=== PATIENT | male | born 1950 | race Caucasian/White ===

== ENCOUNTER → 2016-10-30 10:28 | Outpatient (CLI) | payer MEDICARE, BC | END | disposition home or self-care (01) | LOC: D.RAD 10:28 | DX: R05 Cough (principal) ==

== ENCOUNTER 2017-10-07 06:02 | Emergency (ER) | payer MEDICARE, BC ==
[~2017-10-07] VITALS: Ht 182.9 cm; Wt 84.1 kg
[2017-10-07 06:15] VITALS: Ht 182.9 cm; Wt 84.1 kg
[2017-10-07] MEDS ORDERED: ZESTRIL20 MG PO (06:16)
[2017-10-07] MEDS ORDERED: HYDROCHLOROTH12.5 M1 PO (06:17)
[2017-10-07] MEDS ORDERED: CRESTOR10 MG PO (06:18)
[2017-10-07] MEDS ORDERED: BAYER CHEWABLE81 MG PO (06:18)
[2017-10-07] MEDS ORDERED: FISH OIL 1,2001 CAP PO (06:18)
[2017-10-07 06:47] LABS: BASOPHILS 0.1 % (0-2); HEMATOCRIT 48.2 % (42.0-54.0); HEMOGLOBIN 16.8 g/dL (13.5-17.5); IMMATURE GRANULOCYTES 0.2 % (0-5); LYMPHOCYTES 15.7 % (15-50); MCH 32.6 pg (26.0-34.0); MCHC 34.9 g/dL (31.0-37.0); MCV 93.4 fL (80.0-100.0); MEAN PLATELET VOLUME 10.3 fL (7.4-10.4); MONOCYTES 7.6 % (2-11); NEUTROPHILS 75.4 % (40-80); PLATELET COUNT 149 10x3/uL (130-400); RBC 5.16 10x6/uL (4.20-6.10); RDW 12.7 % (11.5-14.5); WBC 9.6 10x3/uL (4.8-10.8)
[2017-10-07 06:58] LABS: APTT 23.6 SECONDS (22.8-39.4); INR 0.91 (0.85-1.17); PROTIME 11.9 SECONDS (11.6-15.0)
[2017-10-07 07:05] LABS: ALBUMIN 3.4 g/dL (3.4-5.0); ALKALINE PHOSPHATASE 83 U/L (46-116); ALT (SGPT) 238 U/L (10-68); BILIRUBIN - TOTAL 1.47 mg/dL (0.2-1.3); CALC OSMOLALITY 283 mosm/kg (275-300); CALCIUM 8.8 mg/dL (8.5-10.1); CARBON DIOXIDE 26.7 mmol/L (21.0-32.0); CHLORIDE - SERUM 106 mmol/L (98-107); CREATININE - SERUM 1.1 mg/dL (0.6-1.3); GLUCOSE 129 mg/dL (74-106); PROTEIN - SERUM 6.7 g/dL (6.4-8.2); SODIUM 141 mmol/L (136-145); UREA NITROGEN 14 mg/dL (7-18); eGFR NON AFRICAN AMERICAN 71 mL/min (90-120)
[2017-10-07 07:17] LABS: CKMB 1.1 U/L (0.0-3.6); CREATINE KINASE 49 UL (21-232); PRO BNP 199 pg/mL (0-125)
[2017-10-07 07:19] LABS: TROPONIN-I < 0.017 ng/mL (0.000-0.060)
[2017-10-07 10:08] VITALS: BP 144/75
== END 2017-10-07 10:08 | disposition home or self-care (01) ==
LOC: D.ER 06:02
PROVIDERS: Family Medicine
DX: R10.9 Unspecified abdominal pain (principal); I25.810 Atherosclerosis of coronary artery bypass graft(s) without angina pectoris; I10 Essential (primary) hypertension

== ENCOUNTER → 2018-05-06 08:18 | Outpatient (CLI) | payer MEDICARE, BC ==
[2017-10-07 06:15] VITALS: BMI 25.1
[~2018-05-06 08:18] MED LIST: BAYER CHEWABLE81 MG PO; CRESTOR10 MG PO; FISH OIL 1,2001 CAP PO; HYDROCHLOROTH12.5 M1 PO; ZESTRIL20 MG PO
== END | disposition home or self-care (01) ==
LOC: D.CT 08:18
DX: R93.89 Abnormal findings on diagnostic imaging of other specified body structures (principal)

== ENCOUNTER → 2018-10-28 07:47 | Outpatient (CLI) | payer MEDICARE, BC ==
[2017-10-07 06:15] VITALS: BMI 25.1
== END | disposition home or self-care (01) ==
LOC: D.HCCARDIO 07:47
PROVIDERS: ATTEND Internal Medicine Cardiovascular Disease
DX: I35.1 Nonrheumatic aortic (valve) insufficiency (principal)

== ENCOUNTER → 2019-02-24 07:39 | Outpatient (CLI) | payer MEDICARE, BC ==
[2017-10-07 06:15] VITALS: BMI 25.1
[~2019-02-24 07:39] MED LIST changes: +ASCORBIC ACID500 MG PO; +CENTRUM MEN'S1 EACH PO; +FERROUS SULFAT325 MG PO; +NAPRELAN375 MG PO; +ZITHROMAX TRI-500 MG PO
== END | disposition home or self-care (01) ==
LOC: D.US 07:39
PROVIDERS: ATTEND Internal Medicine Gastroenterology
DX: F45.8 Other somatoform disorders (principal); E04.9 Nontoxic goiter, unspecified

== ENCOUNTER 2019-03-15 22:41 | Emergency (ER) | payer MEDICARE, BC ==
[~2019-03-15] VITALS: Ht 182.9 cm; Wt 89.1 kg
[~2019-03-15 22:41] MED LIST changes: -ASCORBIC ACID500 MG PO; -CENTRUM MEN'S1 EACH PO; -FERROUS SULFAT325 MG PO; -NAPRELAN375 MG PO; -ZITHROMAX TRI-500 MG PO
[2019-03-15 22:50] VITALS: Ht 182.9 cm; Wt 89.1 kg
[2019-03-15] MEDS ORDERED: CENTRUM MEN'S1 EACH PO (22:52)
[2019-03-15] MEDS ORDERED: FERROUS SULFAT325 MG PO (22:53)
[2019-03-15] MEDS ORDERED: ASCORBIC ACID500 MG PO (22:53)
[2019-03-15 23:12] LABS: BASOPHILS 0.1 % (0-2); EOSINOPHILS 2.2 % (0-7); HEMATOCRIT 47.5 % (42.0-54.0); HEMOGLOBIN 16.4 g/dL (13.5-17.5); IMMATURE GRANULOCYTES 0.3 % (0-5); LYMPHOCYTES 16.6 % (15-50); MCH 32.3 pg (26.0-34.0); MCHC 34.5 g/dL (31.0-37.0); MCV 93.5 fL (80.0-100.0); MEAN PLATELET VOLUME 10.5 fL (7.4-10.4); MONOCYTES 12.3 % (2-11); NEUTROPHILS 68.5 % (40-80); PLATELET COUNT 148 10x3/uL (130-400); RBC 5.08 10x6/uL (4.20-6.10); RDW 12.7 % (11.5-14.5); WBC 13.4 10x3/uL (4.8-10.8)
[2019-03-15 23:22] LABS: CALC OSMOLALITY 279 mosm/kg (275-300); CARBON DIOXIDE 26.6 mmol/L (21.0-32.0); CHLORIDE - SERUM 105 mmol/L (98-107); CREATININE - SERUM 0.9 mg/dL (0.6-1.3); GLUCOSE 128 mg/dL (74-106); POTASSIUM - SERUM 3.6 mmol/L (3.5-5.1); SODIUM 139 mmol/L (136-145); UREA NITROGEN 13 mg/dL (7-18); eGFR NON AFRICAN AMERICAN 89 mL/min (90-120)
[2019-03-15 23:27] LABS: ALBUMIN 3.5 g/dL (3.4-5.0); ALKALINE PHOSPHATASE 89 U/L (46-116); ALT (SGPT) 50 U/L (10-68); BILIRUBIN - TOTAL 0.55 mg/dL (0.2-1.3); LIPASE 132 U/L (73-393); PROTEIN - SERUM 7.4 g/dL (6.4-8.2)
[2019-03-16 01:26] LABS: APPEARANCE CLEAR (CLEAR); BILIRUBIN NEGATIVE (NEGATIVE); COLOR YELLOW (YELLOW); GLUCOSE NEGATIVE (NEGATIVE); KETONE NEGATIVE (NEGATIVE); NITRITE NEGATIVE (NEGATIVE); PROTEIN NEGATIVE (NEGATIVE); SPECIFIC GRAVITY 1.015 (1.005-1.020); UROBILINOGEN NORMAL (NORMAL)
[2019-03-16 01:27] LABS: BACTERIA NONE SEEN /hpf (NEGATIVE); EPITHELIAL CELLS 0-5 /hpf (0-5); RED CELLS - URINE NONE SEEN /hpf (0-5); WHITE CELLS - URINE 0-5 /hpf (NEGATIVE)
[2019-03-16] MEDS ORDERED: ZITHROMAX TRI-500 MG PO (01:36)
[2019-03-16] MEDS ORDERED: NAPRELAN375 MG PO (01:36)
[2019-03-16 01:51] VITALS: BP 142/77
== END 2019-03-16 01:51 | disposition home or self-care (01) ==
LOC: D.ER 22:41
PROVIDERS: Family Medicine
DX: M94.0 Chondrocostal junction syndrome [Tietze] (principal); I10 Essential (primary) hypertension; I25.2 Old myocardial infarction; Z95.1 Presence of aortocoronary bypass graft

== ENCOUNTER → 2019-04-05 12:31 | Outpatient (CLI) | payer MEDICARE, BC ==
[2019-03-15 22:50] VITALS: BMI 26.6
[~2019-04-05 12:31] MED LIST changes: +ASCORBIC ACID500 MG PO; +CENTRUM MEN'S1 EACH PO; +FERROUS SULFAT325 MG PO; +NAPRELAN375 MG PO; +ZITHROMAX TRI-500 MG PO
== END | disposition home or self-care (01) ==
LOC: D.RAD 12:31
PROVIDERS: ATTEND Internal Medicine Gastroenterology
DX: F45.8 Other somatoform disorders (principal)

== ENCOUNTER → 2019-11-03 08:27 | Outpatient (CLI) | payer MEDICARE, BC ==
[2019-03-15 22:50] VITALS: BMI 26.6
== END | disposition home or self-care (01) ==
LOC: D.HCCECHO 08:27
PROVIDERS: ATTEND Internal Medicine Cardiovascular Disease
DX: I25.10 Atherosclerotic heart disease of native coronary artery without angina pectoris (principal)